=== PATIENT | male | born 1970 | race African-American/Black ===

== ENCOUNTER → 2017-01-10 | Outpatient (CLI) | payer BC ==
--- NOTE | 2017-01-10 14:09 | MR ---
EXAMINATION TYPE: MR lumbar spine wo con DATE OF EXAM: 01/10/2017 1:56 PM COMPARISON: NONE HISTORY: Low back pain CONTRAST: 0 mL intravenous MultiHance. TECHNIQUE: Multiplanar, multisequence images of the lumbar spine were acquired. FINDINGS: L5-S1: There is a broad-based large right paracentral disc herniation with moderate anterior thecal s ac compression. Compression of the exiting right S1 nerve root is present. No spinal canal stenosis. There is some moderate approaching severe right foraminal stenosis due to the disc bulging. Moderat e left foraminal stenosis is also present. . L4-L5: Minimal disc bulge is present with anterior thecal sac flattening. No AP spinal canal stenosis is present. Mild facet hypertrophy is present. Neural foramen are patent. L3-L4: No significant disc bulge or disc herniation. No spinal canal stenosis. No foraminal stenosi s. Neural foramen are patent.. L2-L3: Disc bulge is present with mild anterior thecal sac flattening. No AP spinal canal stenosis pr esent. Neural foramen are patent. L1-L2: No significant disc bulge or disc herniation. No spinal canal stenosis. No foraminal stenosi s. . T12-L1: No significant disc bulge or disc herniation. No spinal canal stenosis. No foraminal stenos is. . IMPRESSION: 1. Large broad right paracentral disc herniation with moderate anterior thecal sac compression L5-S1. Correlate with right S1 radicular symptoms.
== END | disposition home or self-care (01) ==
LOC: RADMRIMAIN 13:22
PROVIDERS: ATTEND Family Medicine
DX: M51.27 Other intervertebral disc displacement, lumbosacral region (principal)
CPT/HCPCS: 72148

== ENCOUNTER → 2019-09-22 | Outpatient (CLI) | payer BC ==
--- NOTE | 2019-09-23 15:10 | US ---
EXAMINATION TYPE: US scrotum with doppler. Grayscale and color Doppler Duplex imaging performed of t betsey scrotum. DATE OF EXAM: 09/22/2019 COMPARISON: NONE CLINICAL HISTORY: N50.811 Right testicular pain. Intermittent right testicular pain and swelling x co uple months EXAM MEASUREMENTS: TESTICLES: Right Testicle: 4.1 x 2.2 x 2.9 cm Left Testicle: 4.8 x 2.2 x 2.9 cm EPIDIDYMIS HEAD: Right Epididymis: 1.7 x 1.1 x 1.8 cm Left Epididymis: 1.1 x 1.0 x 1.6 cm Doppler performed to assess for testicular vascularity; bilateral color flow and waveforms are seen. There is no evidence of testicular torsion. Presence of hydroceles: right 3.4cm, left 2.6cm Presence of varicoceles: no Bilateral testicular micro calcifications. IMPRESSION: Testicular microlithiasis, recommend urology consult.
== END ==
LOC: RADUSWWP 16:20
PROVIDERS: ATTEND Family Medicine
DX: N50.89 Other specified disorders of the male genital organs (principal)
CPT/HCPCS: 76870; 93975

== ENCOUNTER → 2019-10-19 | Outpatient (CLI) | payer BC ==
--- NOTE | 2019-10-19 16:23 | XR ---
EXAMINATION TYPE: XR shoulder complete LT DATE OF EXAM: 10/19/2019 COMPARISON: NONE HISTORY: 48-year-old male slip and fall, pain TECHNIQUE: 3 views FINDINGS: AC joint appears intact. There may be mild joint space narrowing. Subacromial space is pres erved. No acute fracture, subluxation, or dislocation seen. IMPRESSION: No acute osseous abnormality seen.
== END | disposition home or self-care (01) ==
LOC: RADXRMAIN 11:04
PROVIDERS: ATTEND Family Medicine
DX: M25.512 Pain in left shoulder (principal)

== ENCOUNTER 2021-01-03 08:38 | Day surgery (SDC) | payer BC ==
[2020-10-26 09:08] VITALS: BMI 28.4
[~2021-01-03 08:38] MED LIST: LACTATED RINGERS 1,000 ML IV SCH; LIDOCAINE 1% (10MG/ML) FOR IV START INTRADERMA PRN
[2021-01-03 09:05] VITALS: TEMP 97
[2021-01-03] MEDS ORDERED: fentaNYL (PF) 50 MCG/ML 2 ML AMP ONE (09:12)
[2021-01-03] MEDS ORDERED: MIDAZOLAM 2 MG/2 ML VIAL ONE (09:12)
[2021-01-03] MEDS ORDERED: PROPOFOL 10 MG/ML 20 ML VIAL IV ONE (09:12)
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
--- NOTE | 2021-01-03 09:30 | P.PCN ---
Date of Procedure: 01/03/21 Procedure(s) Performed: PREOPERATIVE DIAGNOSIS: Colon cancer screening POSTOPERATIVE DIAGNOSIS: Normal exam PROCEDURE: Colonoscopy ANESTHESIA: MAC SURGEON: Jamison Bautista M.D. SPECIMENS: None ENDOSCOPIC PROCEDURE: The patient was placed on the endoscopy table in the left decubitus position. The Olympus colonoscope was inserted into the anus and passed under direct visualization to the base of the cecum. The appendiceal orifice was visualized. From that point the scope was slowly withdrawn inspecti ng all surfaces carefully. There were no neoplastic inflammatory or polypoid lesions throughout the cecum, ascending, transverse, descending, sigmoid and rectum. There was no visible diverticulosis noted. Digital rectal examination was normal. The patient was taken to the recovery room in stable condition per anesthesia guidelines. RECOMMENDATIONS: Resume diet. Follow colonoscopy 10 years.
[2021-01-03 09:54] VITALS: BP 111/72; PULSE 74; RESP 20
== END 2021-01-03 10:15 | disposition home or self-care (01) ==
LOC: ORWHC2ENDO 08:38
PROVIDERS: ATTEND Surgery
DX: Z12.11 Encounter for screening for malignant neoplasm of colon (principal); I10 Essential (primary) hypertension; G43.909 Migraine, unspecified, not intractable, without status migrainosus; F11.20 Opioid dependence, uncomplicated; G89.29 Other chronic pain; M54.9 Dorsalgia, unspecified; G44.209 Tension-type headache, unspecified, not intractable; Z79.899 Other long term (current) drug therapy; Z79.1 Long term (current) use of non-steroidal anti-inflammatories (NSAID); Z98.890 Other specified postprocedural states
CPT/HCPCS: J2250; J3010; J2704; G0121; 45378

== ENCOUNTER → 2021-12-20 | Outpatient (CLI) | payer BC ==
--- NOTE | 2021-12-20 09:58 | CT ---
EXAMINATION TYPE: CT brain wo con DATE OF EXAM: 12/20/2021 COMPARISON: None HISTORY: chronic headaches CT DLP: 822.6 mGycm Automated exposure control for dose reduction was used. Helical imaging through the brain FINDINGS: Inferior cerebellar tonsillar ectopia is suspected although the base of the clivus is not included in the exam for accurate measurement. There is a partially empty sella. No evident hemorrhage or hydroc ephalus. The calvarium is intact. Paranasal sinuses and mastoid air cells as visualized are normal. B rain volume is within normal limits. Orbits show symmetric appearance as visualized. IMPRESSION: POSSIBLE INFERIOR CEREBELLAR TONSILLAR ECTOPIA, BRAIN MRI MAY BE OF BENEFIT.
== END | disposition home or self-care (01) ==
LOC: RADCTMAIN 07:03
PROVIDERS: ATTEND Family Medicine
DX: R51.9 Headache, unspecified (principal)
CPT/HCPCS: 70450